=== PATIENT | female | born 1985 | race Caucasian/White ===

== ENCOUNTER 2016-12-13 22:08 | Emergency (ER) | payer MEDICAID ==
[~2016-12-13] VITALS: Ht 175.3 cm; Wt 54.4 kg
[~2016-12-13 22:08] MED LIST: OXYC10TA44 PO; SULF-35 PO
[2016-12-13 22:16] VITALS: BP 150/98
== END 2016-12-14 00:37 | disposition left against medical advice (07) ==
LOC: EDUNIT# 22:08 → ER 22:14
DX: M79.605 Pain in left leg (principal); M79.604 Pain in right leg; Z53.21 Procedure and treatment not carried out due to patient leaving prior to being seen by health care provider

== ENCOUNTER 2017-03-28 13:22 | Emergency (ER) | payer MEDICAID ==
[~2017-03-28] VITALS: Ht 167.6 cm; Wt 61.2 kg
[2017-03-28 13:55] LABS: Urine Bacteria None Seen /hpf (None Seen)
[2017-03-28 13:56] VITALS: BP 130/89
[2017-03-28 14:35] LABS: Alcohol, Urine < 3.0 mg/dL (0-5); Amphetamine Screen, Urine NEGATIVE (NEGATIVE); Barbiturate Scree,Urine NEGATIVE (NEGATIVE); Benzodiazephine Screen, Urine POSITIVE (NEGATIVE); Cannabinoid Screen, Urine POSITIVE (NEGATIVE); Cocaine Screen, Urine NEGATIVE (NEGATIVE); Opiate Scree,Urine POSITIVE (NEGATIVE); Phencyclidine Screen, Urine NEGATIVE (NEGATIVE)
[2017-03-28 14:44] LABS: Urine Blood Negative /uL (Negative)
[2017-03-28 14:45] LABS: Urine WBC 5 /hpf (0 - 5)
[2017-03-28 14:52] LABS: Urine Amorphous Crystal FEW /hpf (None Seen)
== END 2017-03-28 14:48 | disposition left against medical advice (07) ==
LOC: ER 13:22 → EDUNIT# 13:22 → ER 14:44
DX: R10.31 Right lower quadrant pain (principal); Z53.21 Procedure and treatment not carried out due to patient leaving prior to being seen by health care provider
CPT/HCPCS: 80307; 81001; 81025